=== PATIENT | male | born 1960 | race Caucasian/White ===

== ENCOUNTER 2017-11-16 22:22 | Emergency (ER) | payer SELFPAY ==
--- NOTE | 2017-11-16 22:30 | EDPHY ---
H & P Time Seen by Provider: 11/16/17 22:30 HPI/ROS: HPI CHIEF COMPLAINT: [ ] HISTORY OF PRESENT ILLNESS: [Need 4: Location, Duration, Severity, Quality, Context, Timing Modifying Factors, Associated S&S] Past Medical History: Past Surgical History: Social History: Family History: ROS REVIEW OF SYSTEMS: 10 Systems were reviewed and negative with the exception of the elements mentioned in the history of present illness. Exam Constitutional triage nursing summary reviewed, vital signs reviewed, awake/ alert. Eyes normal conjunctivae and sclera, EOMI, PERRLA. HENT normal inspection, atraumatic, moist mucus membranes, no epistaxis, neck supple/ no meningismus, no raccoon eyes. Respiratory clear to auscultation bilaterally, normal breath sounds, no respiratory distress, no wheezing. Cardiovascular rate normal, regular rhythm, no murmur, no edema, distal pulses normal. Gastrointestinal soft, non-tender, no rebound, no guarding, normal bowel sounds, no distension, no pulsatile mass. Genitourinary no CVA tenderness. Musculoskeletal no midline vertebral tenderness, full range of motion, no calf swelling, no tenderness of extremities, no meningismus, good pulses, neurovascularly intact. Skin pink, warm, & dry, no rash, skin atraumatic. Neurologic awake, alert and oriented x 3, AAOx3, moves all 4 extremities equally, motor intact, sensory intact, CN II-XII intact, normal cerebellar, normal vision, normal speech. Psychiatric normal mood/affect. Heme/Lymph/Immune no lymphadenopathy. Differential Diagnosis: Medical Decision Making: Re-evaluation: Source: Patient Departure - Departure Referrals: José Miguel Valadez DO [Primary Care Provider] - As per Instructions
[2017-11-16 22:31] VITALS: BP 164/105
--- NOTE | 2017-11-16 22:40 | EDPHY ---
H & P Stated Complaint: "COLD SYMPT TURNS BRONCH X 1 WK"/ACUTE ON CHRONIC 5 YRS Time Seen by Provider: 11/16/17 22:30 HPI/ROS: HPI: This is a 56-year-old male who presents with Chief Complaint: "COLD SYMPT TURNS BRONCH X 1 WK"/ACUTE ON CHRONIC 5 YRS Location: Chest Quality: Cough Duration: 1 week Signs and Symptoms: no fever, no nausea, no vomiting, no diarrhea, no urinary symptoms, no chest pain, no shortness of breath, no wheezing, + productive cough , no sore throat, no neck stiffness, no joint pain, no swollen glands, no ear pain, no rash Timing: Acute, worsening Severity: Moderate Context: Patient presents with 7 days productive cough and fatigue that is worsening. Patient has no history of lung disease but states that every year around this time he develops bronchitis that is only improved with antibiotic administration. He denies any wheezing, lower extremity edema, shortness of breath, chest pain. He has had no fevers but reports that he feels fatigue and chills during the evening. Modifying Factors: [id number] cough suppressants with transient relief Comment: ROS: A comprehensive 10 system review of systems is otherwise negative aside from elements mentioned in the history of present illness. MEDICAL/SURGICAL/SOCIAL HISTORY: Medical history: Chronic bronchitis Surgical history: Denies Social history: Employed. Nonsmoker. Family history noncontributory. CONSTITUTIONAL: Well-appearing middle-aged overweight white male, awake and alert, no obvious distress HEENT: Atraumatic and normocephalic, PERRL, EOMI. Nares patent; no rhinorrhea; no nasal mucosal edema. Tympanic membranes clear. Oropharynx clear, no exudate and moist pink mucosa. Airway patent. No lymphadenopathy. No meningismus. No JVD. Cardiovascular: Normal S1/S2, regular rate, regular rhythm, without murmur rub or gallop. PULMONARY/CHEST: Symmetrical and nontender. Clear to auscultation bilaterally. Good air movement. No accessory muscle usage. Hacking cough noted. ABDOMEN: Soft, nondistended, nontender, no rebound, no guarding, no peritoneal signs, no masses or organomegaly. No CVAT. EXTREMITIES: 2/2 pulses, strength 5/5, no deformities, no clubbing, no cyanosis or edema. NEUROLOGICAL: no focal neuro deficits. GCS 15. SKIN: Warm and dry, no erythema. no rash. Good capillary refill. Source: Patient Exam Limitations: No limitations - Personal History Current Tetanus Diphtheria and Acellular Pertussis (TDAP): Yes - Medical/Surgical History Hx Asthma: No Hx Chronic Respiratory Disease: No Hx Diabetes: No Hx Cardiac Disease: No Hx Renal Disease: No Hx Cirrhosis: No Hx Alcoholism: No Hx HIV/AIDS: No Hx Splenectomy or Spleen Trauma: No Other PMH: "RECURRING COLDS, THAT NEEDS ABX" - Social History Smoking Status: Never smoked Constitutional: Initial Vital Signs Temperature (C) 36.7 C 11/16/17 22:25 Heart Rate 87 11/16/17 22:25 Respiratory Rate 16 11/16/17 22:25 Blood Pressure 164/105 H 11/16/17 22:25 O2 Sat (%) 94 11/16/17 22:25 O2 Delivery Mode Room Air Allergies/Adverse Reactions: No Known Allergies Allergy (Unverified 11/16/17 22:30) Home Medications: Medication Instructions Recorded Albuterol Sulfate [Proair Hfa] 1 - 2 puffs IH Q4 PRN #1 hfa.aer.ad 11/16/17 Azithromycin [Zithromax] 250 mg PO DAILY #6 tab 11/16/17 Flexetine 11/16/17 Medical Decision Making ED Course/Re-evaluation: Vital signs reviewed and stable upon arrival. No systemic signs. Lung exam benign. Offered patient chest x-ray to evaluate for community-acquired pneumonia, patient adamantly declined stating that he does not need one. Due to symptoms lasting greater than 7 days, will treat with antibiotics. Prescription for azithromycin and albuterol inhaler given This patient was seen under the supervision of my secondary supervising physician. I evaluated care for this patient independently. Discussed this patient with Dr. Pereyra. Differential Diagnosis: Differential diagnosis includes but is not limited to sinusitis, upper respiratory infection, lower respiratory infection, influenza, pneumonia. Departure - Departure Disposition: Home, Routine, Self-Care Clinical Impression: Acute bacterial bronchitis Condition: Good Instructions: Acute Bronchitis (ED), Bronchospasm (ED) Additional Instructions: Take antibiotic as directed until complete. Do not skip a dose. Take Tylenol 650 mg every 4 hours and/or Ibuprofen 600 mg every 8 hours with food as needed for pain. Use Albuterol inhaler every 4-6 hours as needed for wheezing, shortness of breath, bronchospasm. Return to the ER immediately if you experience fevers/chills, shortness of breath, abdominal pain, inability to tolerate oral intake, or any other symptoms that concern you. Referrals: José Miguel Valadez DO [Primary Care Provider] - 5-7 days, if not improved Prescriptions: Albuterol Sulfate [Proair Hfa] 1 - 2 puffs IH Q4 PRN #1 hfa.aer.ad PRN Reason: Short Of Breath/Dyspnea Azithromycin [Zithromax] 250 mg PO DAILY #6 tab
== END 2017-11-16 23:04 | disposition home or self-care (01) ==
DX: J20.8 Acute bronchitis due to other specified organisms (principal)